=== PATIENT | male | born 1950 | race Caucasian/White ===

== ENCOUNTER 2018-03-26 17:22 | Inpatient (IN) | payer MEDICARE, BC ==
[2018-03-26] MEDS ORDERED: ONDANSETRON HCL INJ/PF 4 MG/2 ML SDV IV ONE (18:27)
[2018-03-26] MEDS ORDERED: MORPHINE SULFATE 10 MG/ML INJ IV ONE ×2 (18:27→23:01)
--- NOTE | 2018-03-26 18:31 | ER Document Report ---
ED Medical Screen (RME) - General Chief Complaint: Abdominal Pain Stated Complaint: ABDOMINAL PAIN Time Seen by Provider: 03/26/18 18:27 Mode of Arrival: Wheelchair Information source: Patient, Relative Notes: pt report symptoms started Monday with n/v, abdominal pain. Increased pain today , +hiccups. denies cp, reports lower abdominal pain, daughter reports pain started in RUQ, has hx cad, back surgery, cardiac stents. LB M today - Related Data Allergies/Adverse Reactions: codeine Allergy (Verified 03/26/18 17:31) Past Medical History - Social History Chew tobacco use (# tins/day): No Frequency of alcohol use: Occasional Drug Abuse: None Renal/ Medical History: Reports: Hx Peritoneal Dialysis Physical Exam - Vital signs Vitals: Temp Pulse Resp BP Pulse Ox 98.9 F 101 H 16 151/99 H 94 03/26/18 17:48 03/26/18 17:48 03/26/18 17:48 03/26/18 17:48 03/26/18 17:48 Course - Vital Signs Vital signs: Temp Pulse Resp BP Pulse Ox 98.9 F 101 H 16 151/99 H 94 03/26/18 17:48 03/26/18 17:48 03/26/18 17:48 03/26/18 17:48 03/26/18 17:48
--- NOTE | 2018-03-26 19:08 | RADIOLOGY REPORT (SQ) ---
EXAM DESCRIPTION: KUB/ABDOMEN (SINGLE VIEW) COMPLETED DATE/TIME: 03/26/2018 6:57 pm REASON FOR STUDY: abd pain, hx bowel obstruction COMPARISON: None. NUMBER OF VIEWS: One view. TECHNIQUE: Supine radiographic image of the abdomen acquired. LIMITATIONS: None. FINDINGS: BOWEL GAS PATTERN: Nonobstructive bowel gas pattern. Moderate stool burden. CALCIFICATIONS: No suspicious calcifications. SOFT TISSUES: No gross mass or suggestion of organomegaly. HARDWARE: Multiple surgical clips in the deep left pelvis. BONES: No acute fracture. Moderate degenerative changes in the lower thoracic and lumbar spine. OTHER: No other significant finding. IMPRESSION: Nonobstructive bowel gas pattern. Moderate stool burden. TECHNICAL DOCUMENTATION: JOB ID: [id number] [id number] 2010 [employer]- All Rights Reserved Reading location - IP/workstation name: [email or web address]
[2018-03-26] MEDS ORDERED: DIPHENHYDRAMINE HCL 50 MG/ML VIAL IV ONE (19:24)
[2018-03-26] MEDS ORDERED: METOCLOPRAMIDE HCL INJ/PF 10 MG/2 ML SDV IV ONE (19:24)
[2018-03-26] MEDS ORDERED: NORMAL SALINE 1000 ML 1,000 ML IV ONE ×2 (19:24→23:38)
[2018-03-26] MEDS ORDERED: PANTOPRAZOLE SODIUM 40 MG VIAL IV ONE (19:25)
--- NOTE | 2018-03-26 19:28 | ER Document Report ---
ED General - General Chief Complaint: Abdominal Pain Stated Complaint: ABDOMINAL PAIN Time Seen by Provider: 03/26/18 18:27 Mode of Arrival: Wheelchair Information source: Patient Notes: This is a 67-year-old man with a history of rheumatoid arthritis, CAD (4 stents) , hypertension, dyslipidemia, IBS. Patient presents to the emergency room with nausea, vomiting, abdominal pain since last night. Patient denies any constipation or diarrhea. Patient denies any blood in the stool. Surgery: Coronary stents Bowel perforation in - HPI Onset: Just prior to arrival Onset/Duration: Sudden Quality of pain: Dull Severity: Moderate Pain Level: 4 Associated symptoms: Nausea, Vomiting. denies: Fever Exacerbated by: Movement Relieved by: Denies Similar symptoms previously: No Recently seen / treated by doctor: No - Related Data Allergies/Adverse Reactions: codeine Allergy (Verified 03/26/18 17:31) Past Medical History - General Information source: Patient, Relative - Social History Smoking Status: Former Smoker Cigarette use (# per day): No Chew tobacco use (# tins/day): No Frequency of alcohol use: Occasional Drug Abuse: None Lives with: Family Family History: None Patient has suicidal ideation: No Patient has homicidal ideation: No - Past Medical History Cardiac Medical History: Reports: Hx Hypercholesterolemia, Hx Hypertension Pulmonary Medical History: Reports: None EENT Medical History: Reports: None Neurological Medical History: Reports: None Endocrine Medical History: Reports: None Malignancy Medical History: Reports None GI Medical History: Reports: Hx Irritable Bowel, Other - Perforated viscus Musculoskeletal Medical History: Reports Hx Arthritis, Reports Other - Rheumatoid arthritis Psychiatric Medical History: Reports: None Traumatic Medical History: Reports: None Infectious Medical History: Reports: None Past Surgical History: Reports: Hx Bowel Surgery Review of Systems - Review of Systems Constitutional: denies: Chills, Fever EENT: No symptoms reported Cardiovascular: No symptoms reported Respiratory: No symptoms reported Gastrointestinal: See HPI, Abdominal pain, Nausea, Vomiting, Poor appetite. denies: Diarrhea, Black stools, Rectal bleeding, Fecal incontinence Genitourinary: No symptoms reported Male Genitourinary: No symptoms reported Musculoskeletal: No symptoms reported Skin: No symptoms reported Hematologic/Lymphatic: No symptoms reported Neurological/Psychological: No symptoms reported Physical Exam - Vital signs Vitals: Temp Pulse Resp BP Pulse Ox 98.9 F 101 H 16 151/99 H 94 03/26/18 17:48 07/23/18 17:48 03/26/18 17:48 03/26/18 17:48 03/26/18 17:48 Notes: Physical exam: GENERAL: Alert and oriented 3, appears uncomfortable HEAD: Atraumatic, normocephalic. EYES: Pupils equal round and reactive to light, extraocular movements intact, sclera anicteric, conjunctiva are normal. ENT: TMs normal, nares patent, oropharynx clear without exudates. Moist mucous membranes. NECK: Normal range of motion, supple without obvious mass or JVD. LUNGS: Breath sounds clear to auscultation bilaterally and equal. No wheezes rales or rhonchi. HEART: Regular rate and rhythm without murmurs, rubs or gallops. ABDOMEN: Soft, hypoactive bowel sounds. Generalized tenderness diffusely. No guarding, no rebound. No masses appreciated. Genitalia: Testes 2 nontender. No inguinal hernias noted. Rectal exam: Scant stool in vault, sent for study, no masses. EXTREMITIES: Normal range of motion, no pitting or edema. No clubbing or cyanosis. NEUROLOGICAL: Cranial nerves II through XII grossly intact. Normal speech, moving all extremities. PSYCH: Normal mood, normal affect. SKIN: Warm, Dry, normal turgor, no rashes or lesions noted. At side ultrasound: No hydronephrosis, no obvious gallstones/pericholecystic fluid/gallbladder wall thickening Course - Re-evaluation Re-evalutation: 03/26/18 23:[address] findings [address] Dr. Howard who is consulted - Vital Signs Vital signs: Temp Pulse Resp BP Pulse Ox 98.9 F 101 H 18 149/91 H 95 03/26/18 17:48 03/26/18 17:48 03/26/18 23:01 03/26/18 21:01 03/26/18 23:01 - Laboratory Result Diagrams: 03/26/18 20:26 03/26/18 20:26 Laboratory results interpreted by me: 03/26/18 03/26/18 03/26/18 19:33 20:26 20:26 WBC 11.8 H RDW 14.7 H Seg Neutrophils % 81.6 H Lymphocytes % 9.8 L Absolute Neutrophils 9.6 H BUN 22 H Glucose 115 H Total Bilirubin 1.7 H Urine Protein 30 H Urine Ketones TRACE H Urine Blood SMALL H - Diagnostic Test Radiology reviewed: Image reviewed, Reports reviewed - CT of the abdomen suggestive of small bowel obstruction Critical Care Note - Critical Care Note Total time excluding time spent on procedures (mins): 50 Discharge - Discharge Clinical Impression: Abdominal pain, SBO Condition: Stable Disposition: ADMITTED INPATIENT Admitting Provider: Surgicalist - Dr. Howard Unit Admitted: Surgical Floor
[2018-03-26 19:53] LABS: APPEARANCE,URINE CLEAR; BILIRUBIN,URINE NEGATIVE (NEGATIVE); COLOR,URINE YELLOW; GLUCOSE, URINE NEGATIVE (NEGATIVE); KETONES,URINE TRACE mg/dL (NEGATIVE); LEUKOCYTE ESTERASE,URINE NEGATIVE (NEGATIVE); NITRITE,URINE NEGATIVE (NEGATIVE); PROTEIN,URINE 30 mg/dL (NEGATIVE); URINE SPECIFIC GRAVITY 1.019; UROBILINOGEN,URINE NEGATIVE mg/dL (<2.0)
[2018-03-26 20:38] LABS: ABSOLUTE LYMPHOCYTES (AUTO) 1.2 10^3/uL (0.5-4.7); ABSOLUTE NEUT (AUTO) 9.6 10^3/uL (1.7-8.2); BASOPHILS % (AUTO) 0.2 % (0-2); EOSINOPHILS % (AUTO) 0.2 % (0-6); HEMATOCRIT 49.7 % (37.9-51.0); HEMOGLOBIN 16.6 g/dL (13.5-17.0); LYMPHOCYTES % (AUTO) 9.8 % (13-45); MEAN CORPUSCULAR HEMOGLOBIN 30.3 pg (27.0-33.4); MEAN CORPUSCULAR HGB CONC 33.4 g/dL (32.0-36.0); MEAN CORPUSCULAR VOLUME 91 fl (80-97); MONOCYTES % (AUTO) 8.2 % (3-13); PLATELET COUNT 238 10^3/uL (150-450); RED BLOOD COUNT 5.48 10^6/uL (4.35-5.55); RED CELL DISTRIBUTION WIDTH 14.7 % (11.5-14.0); SEGMENTED NEUTROPHILS % (AUTO) 81.6 % (42-78); TOTAL CELLS COUNTED % (AUTO) 100 %; WHITE BLOOD COUNT 11.8 10^3/uL (4.0-10.5)
[2018-03-26 20:56] LABS: ALANINE AMINOTRANSFERASE 32 U/L (21-72); ALBUMIN 3.8 g/dL (3.5-5.0); ALKALINE PHOSPHATASE 61 U/L (38-126); ANION GAP 11 (5-19); ASPARTATE AMINO TRANSFERASE 19 U/L (17-59); BILIRUBIN,DIRECT 0.2 mg/dL (0.0-0.4); BILIRUBIN,TOTAL 1.7 mg/dL (0.2-1.3); BLOOD UREA NITROGEN 22 mg/dL (7-20); CALCIUM 9.2 mg/dL (8.4-10.2); CARBON DIOXIDE 27 mmol/L (22-30); CHLORIDE 102 mmol/L (98-107); GLUCOSE 115 mg/dL (75-110); LIPASE 139.9 U/L (23-300); POTASSIUM 4.4 mmol/L (3.6-5.0); SODIUM 140.2 mmol/L (137-145); TOTAL PROTEIN 6.4 g/dL (6.3-8.2)
--- NOTE | 2018-03-26 22:03 | EKG REPORT ---
SEVERITY:- ABNORMAL ECG - SINUS RHYTHM LEFT ANTERIOR FASCICULAR BLOCK NONSPECIFIC REPOL ABNORMALITY, DIFFUSE LEADS BORDERLINE PROLONGED QT INTERVAL : Confirmed by: Alva Gambino MD 26-Mar-2018 22:02:22
--- NOTE | 2018-03-26 22:30 | RADIOLOGY REPORT (SQ) ---
EXAM DESCRIPTION: CT ABD/PELVIS WITH IV ONLY COMPLETED DATE/TIME: 03/26/2018 10:16 pm REASON FOR STUDY: abd pain COMPARISON: None. TECHNIQUE: CT scan of the abdomen and pelvis performed using helical scanning technique with dynamic intravenous contrast injection. No oral contrast. Images reviewed with lung, soft tissue, and bone windows. Reconstructed coronal and sagittal MPR images reviewed. Delayed images for evaluation of the urinary system also acquired. All images stored on PACS. All CT scanners at this facility use dose modulation, iterative reconstruction, and/or weight based d osing when appropriate to reduce radiation dose to as low as reasonably achievable (ALARA). [facility]: Dose Right [facility]: CareDose [facility]: Dose Right [facility]: Teradose 4D [facility]: [employer] CONTRAST TYPE AND DOSE: contrast/concentration: Isovue 370.00 mg/ml; Total Contrast Delivered: 65.0 ml; Total Saline Delivered: 40.0 ml RENAL FUNCTION: BUN 22 creatinine 0.82. RADIATION DOSE: CT Rad equipment meets quality standard of care and radiation dose reduction techniq ues were employed. CTDIvol: 4.9 - 5.7 mGy. DLP: 470 mGy-cm.. LIMITATIONS: None. FINDINGS: LOWER CHEST: No significant findings. No nodules or infiltrates. LIVER: Normal size. No masses. No dilated ducts. SPLEEN: Normal size. No focal lesions. PANCREAS: No masses. No significant calcifications. No adjacent inflammation or peripancreatic fluid collections. Pancreatic duct not dilated. GALLBLADDER: No identified stones by CT criteria. No inflammatory changes to suggest cholecystitis. ADRENAL GLANDS: No significant masses or asymmetry. RIGHT KIDNEY AND URETER: Small cortical cysts. No solid masses. Small nonobstructing calyceal calc skip. No hydronephrosis or hydroureter. LEFT KIDNEY AND URETER: Small cortical cysts. No solid masses. Small nonobstructing calyceal calcu li. No hydronephrosis or hydroureter. AORTA AND VESSELS: No aneurysm. No dissection. Renal arteries, SMA, celiac without stenosis. RETROPERITONEUM: No retroperitoneal adenopathy, hemorrhage or masses. BOWEL AND PERITONEAL CAVITY: Dilation of a majority of the small bowel with bowel wall thickening. T he most distal small bowel loops are nondilated. Small amount of free fluid. APPENDIX: Surgically absent. PELVIS: No mass. No free fluid. Normal bladder. ABDOMINAL WALL: No masses. No hernias. BONES: No significant or acute findings. Degenerative changes in the spine with scoliosis. Pars def ects at L5 with grade 1 anterolisthesis of L5 on S1. OTHER: No other significant finding. IMPRESSION: 1. DISTAL SMALL BOWEL OBSTRUCTION. NO OBVIOUS ETIOLOGY OR FOCAL TRANSITION POINT DEMONSTRATED. SMAL L BOWEL WALL THICKENING. SMALL AMOUNT OF FREE FLUID. 2. SMALL NONOBSTRUCTING CALYCEAL CALCULI IN BOTH KIDNEYS. SMALL CORTICAL CYSTS IN BOTH KIDNEYS. 3. NO OTHER SIGNIFICANT OR ACUTE FINDING IN THE ABDOMEN OR PELVIS ON CT SCAN WITH IV CONTRAST. TECHNICAL DOCUMENTATION: JOB ID: [id number] Quality ID # [id number]: Final reports with documentation of one or more dose reduction techniques (e.g., Au tomated exposure control, adjustment of the mA and/or kV according to patient size, use of iterative reconstruction technique) 2010 [employer]- All Rights Reserved Reading location - IP/workstation name: [email or web address]
--- NOTE | 2018-03-26 23:38 | PDOC H&P ---
History of Present Illness Patient complains of: Abdominal pain History of Present Illness: LISA CHASE is a 67 year old male with prior history of intestinal perforation status post colostomy and subsequent colostomy takedown over 20 years ago now presenting with 2-3 day history of crampy lower abdominal pain especially on the right side. The pain dramatically worsened last night along with nausea and hiccups and dry heaves but no emesis. Patient had a normal bowel movement yesterday but none today. Although he had severe abdominal pain last night, currently he states that he has negligible abdominal pain however he still does not feel well and he has had persistent hiccups. He denies any passage of flatus today. No fevers or chills. Past Medical History Cardiac Medical History: Reports: Myocardial Infarction - History of myocardial infarction in the remote past status post angioplasty Musculoskeltal Medical History: Reports: Arthritis - RA. Patient has a history of immunosuppressive rx, none in past 18 months Past Surgical History Past Surgical History: Reports: Other - Multiple orthopedic surgeries. Bowel resection with colostomy. Social History Smoking Status: Never Smoker Frequency of Alcohol Use: Rare Family History Parental Family History Reviewed: No Children Family History Reviewed: No Sibling(s) Family History Reviewed.: No Medication/Allergy Allergies/Adverse Reactions: codeine Allergy (Verified 03/26/18 17:31) Physical Exam Vital Signs: Temp Pulse Resp BP Pulse Ox 98.9 F 101 H 18 149/91 H 95 03/26/18 17:48 03/26/18 17:48 03/26/18 23:01 03/26/18 21:01 03/26/18 23:01 Intake & Output 03/25/18 03/26/18 03/27/18 06:59 06:59 06:59 Weight 50 kg General appearance: PRESENT: no acute distress, cooperative, other - Patient appears ill but he does not appear toxic. Eye exam: PRESENT: conjunctiva pink Respiratory exam: PRESENT: clear to auscultation stanley Cardiovascular exam: PRESENT: RRR GI/Abdominal exam: PRESENT: other - Abdomen is distended with well-healed midline scar with no palpable hernia defects. Patient has no palpable groin hernias. He has mild tenderness to palpation in the right lower quadrant without peritoneal signs. There is occasional high-pitched bowel sounds. Extremities exam: PRESENT: other - No swelling. No rash. No petechiae. Neurological exam: PRESENT: alert, awake Psychiatric exam: PRESENT: appropriate affect Skin exam: PRESENT: warm Results Laboratory Results: 03/26/18 20:26 03/26/18 20:26 03/26/18 03/26/18 03/26/18 19:33 19:33 19:33 WBC Cancelled RBC Cancelled Hgb Cancelled Hct Cancelled MCV Cancelled MCH Cancelled MCHC Cancelled RDW Cancelled Plt Count Cancelled Seg Neutrophils % Cancelled Lymphocytes % Cancelled Monocytes % Cancelled Eosinophils % Cancelled Basophils % Cancelled Absolute Neutrophils Cancelled Absolute Lymphocytes Cancelled Absolute Monocytes Cancelled Absolute Eosinophils Cancelled Absolute Basophils Cancelled Sodium Cancelled Potassium Cancelled Chloride Cancelled Carbon Dioxide Cancelled Anion Gap Cancelled BUN Cancelled Creatinine Cancelled Est GFR ( Amer) Cancelled Est GFR (Non-Af Amer) Cancelled Glucose Cancelled Calcium Cancelled Total Bilirubin Cancelled AST Cancelled ALT Cancelled Alkaline Phosphatase Cancelled Total Protein Cancelled Albumin Cancelled Lipase Cancelled Urine Color YELLOW Urine Appearance CLEAR Urine pH 5.0 Ur Specific [place] 1.019 Urine Protein 30 H Urine Glucose (UA) NEGATIVE Urine Ketones TRACE H Urine Blood SMALL H Urine Nitrite NEGATIVE Ur Leukocyte Esterase NEGATIVE Urine WBC (Auto) 3 Urine RBC (Auto) 8 Stool Occult Blood 03/26/18 03/26/18 03/26/18 19:33 20:26 20:26 WBC 11.8 H RBC 5.48 Hgb 16.6 Hct 49.7 MCV 91 MCH 30.3 MCHC 33.4 RDW 14.7 H Plt Count 238 Seg Neutrophils % 81.6 H Lymphocytes % 9.8 L Monocytes % 8.2 Eosinophils % 0.2 Basophils % 0.2 Absolute Neutrophils 9.6 H Absolute Lymphocytes 1.2 Absolute Monocytes 1.0 Absolute Eosinophils 0.0 Absolute Basophils 0.0 Sodium 140.2 Potassium 4.4 Chloride 102 Carbon Dioxide 27 Anion Gap 11 BUN 22 H Creatinine 0.82 Est GFR ( Amer) > 60 Est GFR (Non-Af Amer) > 60 Glucose 115 H Calcium 9.2 Total Bilirubin 1.7 H AST 19 ALT 32 Alkaline Phosphatase 61 Total Protein 6.4 Albumin 3.8 Lipase 139.9 Urine Color Urine Appearance Urine pH Ur Specific [place] Urine Protein Urine Glucose (UA) Urine Ketones Urine Blood Urine Nitrite Ur Leukocyte Esterase Urine WBC (Auto) Urine RBC (Auto) Stool Occult Blood NEGATIVE Impressions: KUB X-Ray 03/26/18 18:35 IMPRESSION: Nonobstructive bowel gas pattern. Moderate stool burden. Abdomen/Pelvis CT 03/26/18 21:15 IMPRESSION: 1. DISTAL SMALL BOWEL OBSTRUCTION. NO OBVIOUS ETIOLOGY OR FOCAL TRANSITION POINT DEMONSTRATED. SMALL BOWEL WALL THICKENING. SMALL AMOUNT OF FREE FLUID. 2. SMALL NONOBSTRUCTING CALYCEAL CALCULI IN BOTH KIDNEYS. SMALL CORTICAL CYSTS IN BOTH KIDNEYS. 3. NO OTHER SIGNIFICANT OR ACUTE FINDING IN THE ABDOMEN OR PELVIS ON CT SCAN WITH IV CONTRAST. Assessment & Plan - Diagnosis (1) Small bowel obstruction Is this a current diagnosis for this admission?: Yes Plan: Possible small bowel obstruction. Although he demonstrates evidence of small bowel thickening with free peritoneal fluid, he has minimal abdominal pain at this time with minimal tenderness and no tachycardia. I do not see a distinct transition point on the CT scan. I do not see evidence of closed loop obstruction on CT scan. I think if he has compromised bowel he would demonstrate more tenderness and he would have persistent pain. Therefore I will attempt conservative management initially with NG decompression and IV fluids. Will repeat his x-rays in the morning. We will consider possible small bowel follow study.
[2018-03-26] MEDS ORDERED: PHARMACY COMMUNICATION ORDER MC NR (23:45)
[2018-03-27 04:22] LABS: HEMOGLOBIN 15.5 g/dL (13.5-17.0); MEAN CORPUSCULAR HEMOGLOBIN 30.7 pg (27.0-33.4); MEAN CORPUSCULAR HGB CONC 33.8 g/dL (32.0-36.0); MEAN CORPUSCULAR VOLUME 91 fl (80-97); PLATELET COUNT 222 10^3/uL (150-450); RED BLOOD COUNT 5.05 10^6/uL (4.35-5.55); RED CELL DISTRIBUTION WIDTH 14.9 % (11.5-14.0); WHITE BLOOD COUNT 10.2 10^3/uL (4.0-10.5)
[2018-03-27 04:47] LABS: ANION GAP 9 (5-19); BLOOD UREA NITROGEN 21 mg/dL (7-20); CALCIUM 8.5 mg/dL (8.4-10.2); CARBON DIOXIDE 24 mmol/L (22-30); CHLORIDE 107 mmol/L (98-107); GLUCOSE 104 mg/dL (75-110); POTASSIUM 4.2 mmol/L (3.6-5.0); SODIUM 139.5 mmol/L (137-145)
--- NOTE | 2018-03-27 07:59 | EKG REPORT ---
SEVERITY:- ABNORMAL ECG - SINUS RHYTHM LEFT ANTERIOR FASCICULAR BLOCK BORDERLINE PROLONGED QT INTERVAL : Confirmed by: Alva Gambino MD 27-Mar-2018 07:58:53
--- NOTE | 2018-03-27 08:52 | RADIOLOGY REPORT (SQ) ---
EXAM DESCRIPTION: ABDOMEN 2 VIEWS COMPLETED DATE/TIME: 03/27/2018 7:29 am REASON FOR STUDY: Follow-up possible small bowel obstruction COMPARISON: 03/26/2018 NUMBER OF VIEWS: Two views. TECHNIQUE: Supine and erect/decubitus radiographic images of the abdomen acquired. LIMITATIONS: None. FINDINGS: FREE AIR: None. LUNG BASES: Clear. BOWEL GAS PATTERN: Abundant fecal material throughout the colon. Small bowel loops upper limits of n ormal in caliber in the left upper quadrant. Nasogastric tube in the stomach. CALCIFICATIONS: No suspicious calcifications. SOFT TISSUES: No gross mass or suggestion of organomegaly. HARDWARE: None in the abdomen. BONES: No acute fracture. No worrisome bone lesions. OTHER: No other significant finding. IMPRESSION: Fecal retention. Ileus. TECHNICAL DOCUMENTATION: JOB ID: [id number] [employer]- All Rights Reserved Reading location - IP/workstation name: [email or web address]
[2018-03-27] MEDS: ENOXAPARIN SODIUM INJ 40 MG/0.4 ML DISP.SYRIN SUBCUT SCH (10:10)
--- NOTE | 2018-03-27 11:27 | PDOC PROGRESS REPORT ---
Subjective Progress Note for:: 03/27/18 Subjective:: Feels better. Passing flatus. Reason For Visit: SMALL BOWEL OBSTRUCTION Physical Exam Vital Signs: Temp Pulse Resp BP Pulse Ox 98.9 F 101 H 15 125/86 H 96 03/26/18 17:48 03/26/18 17:48 03/27/18 04:30 03/27/18 04:30 03/27/18 04:30 Intake & Output 03/26/18 03/27/18 03/28/18 06:59 06:59 06:59 Output Total 30 Balance -30 General appearance: PRESENT: no acute distress, cooperative Respiratory exam: PRESENT: clear to auscultation stanley Cardiovascular exam: PRESENT: RRR GI/Abdominal exam: PRESENT: other - Soft, mildly distended, minimal tenderness. No peritoneal signs. Extremities exam: PRESENT: other - No swelling. Results Laboratory Results: 03/27/18 04:10 03/27/18 04:10 03/27/18 03/27/18 04:10 04:10 WBC 10.2 RBC 5.05 Hgb 15.5 Hct 46.0 MCV 91 MCH 30.7 MCHC 33.8 RDW 14.9 H Plt Count 222 Sodium 139.5 Potassium 4.2 Chloride 107 Carbon Dioxide 24 Anion Gap 9 BUN 21 H Creatinine 0.72 Est GFR ( Amer) > 60 Est GFR (Non-Af Amer) > 60 Glucose 104 Calcium 8.5 Impressions: KUB X-Ray 03/26/18 18:35 IMPRESSION: Nonobstructive bowel gas pattern. Moderate stool burden. Abdomen/Pelvis CT 03/26/18 21:15 IMPRESSION: 1. DISTAL SMALL BOWEL OBSTRUCTION. NO OBVIOUS ETIOLOGY OR FOCAL TRANSITION POINT DEMONSTRATED. SMALL BOWEL WALL THICKENING. SMALL AMOUNT OF FREE FLUID. 2. SMALL NONOBSTRUCTING CALYCEAL CALCULI IN BOTH KIDNEYS. SMALL CORTICAL CYSTS IN BOTH KIDNEYS. 3. NO OTHER SIGNIFICANT OR ACUTE FINDING IN THE ABDOMEN OR PELVIS ON CT SCAN WITH IV CONTRAST. Abdomen X-Ray 03/27/18 06:40 IMPRESSION: Fecal retention. Ileus. Assessment & Plan - Diagnosis (1) Small bowel obstruction Is this a current diagnosis for this admission?: Yes Plan: Appears improved. Minimal NG output. Passing gas. Air in the colon on x-ray all are good signs. Patient still not back to baseline however. Small bowel still appears dilated on x-rays. Therefore we will keep the NG tube and IV fluids and n.p.o. status. Will try fleets enema-- Stool seen in the right colon. Encourage ambulation.
[2018-03-27] MEDS ORDERED: NA PHOS,M-B/NA PHOS,DI-BA (ADULT) 133 ML ENEMA PR ONE (11:28)
[2018-03-27] MEDS ORDERED: METOPROLOL TARTRATE PF/INJ 5 MG/5 ML SDV IV SCH (13:30)
[2018-03-27] MEDS ORDERED: ONDANSETRON HCL INJ/PF 4 MG/2 ML SDV IV PRN (16:11)
[2018-03-27] MEDS: NORMAL SALINE 1000 ML 1,000 ML IV PRN (16:49)
--- NOTE | 2018-03-27 18:03 | PDOC CONSULTATION ---
Consultation Consult Date: 03/27/18 Attending physician:: CARLOS BRITO Consult reason:: CAD, history of atrial fibrillation History of Present Illness Admission Date/PCP: 03/26/18 23:47 Patient complains of: Abdominal pain History of Present Illness: LISA CHASE is a 67 year old male with prior history of intestinal perforation status post colostomy and subsequent colostomy takedown over 20 years ago now presenting with 2-3 day history of crampy lower abdominal pain especially on the right side. The pain dramatically worsened last night along with nausea and hiccups and dry heaves but no emesis. Patient had a normal bowel movement yesterday but none today. Although he had severe abdominal pain last night, currently he states that he has negligible abdominal pain however he still does not feel well and he has had persistent hiccups. He denies any passage of flatus today. No fevers or chills. Patient has history of coronary artery disease and history of coronary stent placement 4 in 2009. Since then he has done well. 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 I was asked to follow patient from cardiac standpoint because of his significant CAD and possible need for surgery. When I saw the patient he denied any chest pain. He was noted to be in sinus rhythm but somewhat tachycardic. Orders were placed for IV Lopressor 2.5 mg every 6 since patient was on NG suction and being treated for bowel obstruction. Past Medical History Cardiac Medical History: Reports: Myocardial Infarction - History of myocardial infarction in the remote past status post angioplasty, Hyperlipidema, Hypertension Pulmonary Medical History: Reports: None EENT Medical History: Reports: None Neurological Medical History: Reports: None Endocrine Medical History: Reports: None Malignancy Medical History: Reports: None GI Medical History: Reports: Other - Perforated viscus Musculoskeltal Medical History: Reports: Arthritis - RA. Patient has a history of immunosuppressive rx, none in past 18 months, Other - Rheumatoid arthritis Psychiatric Medical History: Reports: None Traumatic Medical History: Reports: None Infectious Medical History: Reports: None Past Surgical History Past Surgical History: Reports: Coronary Stent, Other - Multiple orthopedic surgeries. Bowel resection with colostomy. Social History Information Source: Patient Lives with: Family Smoking Status: Never Smoker Frequency of Alcohol Use: Occasional Hx Recreational Drug Use: No Hx Prescription Drug Abuse: No - Advance Directive Resuscitation Status: Full Code Surrogate healthcare decision maker:: Patient's is the surrogate decision-maker Family History Family History: CAD, Hypertension Parental Family History Reviewed: Yes Children Family History Reviewed: Yes Sibling(s) Family History Reviewed.: Yes Medication/Allergy Home Medications: Aspirin [Aspirin EC] 81 mg PO DAILY 03/27/18 Atorvastatin Calcium [Lipitor 80 mg Tablet] 80 mg PO QHS 03/27/18 Cholecalciferol (Vitamin D3) [Vitamin D3 1000 Unit Tablet] 1,000 unit PO DAILY 03/27/18 Folic Acid 1 mg PO DAILY 03/27/18 Metoprolol Tartrate [Lopressor 25 mg Tablet] 25 mg PO Q12 03/27/18 Tamsulosin HCl [Flomax 0.4 mg Cap.sr] 0.4 mg PO DAILY 03/27/18 Tramadol HCl [Ultram 50 mg Tablet] 50 mg PO Q6HP PRN 03/27/18 Allergies/Adverse Reactions: codeine Allergy (Verified 03/26/18 17:31) Review of Systems Review of Systems: Please see history of present illness and past medical history as wall. Constitutional: No fever or chills reported. Head : No recent chronic headaches, recent head injury. Eyes: No recent eye pain, diplopia, redness, discharge, acute visual changes. Ears: No recent chronic ear pain, acute hearing loss, ear discharge. Oral cavity: No recent ulcerations, bleeding, oral cavity discomfort. Neck: No recent acute neck pain reported. Hematologic: No recent easy bruising or bleeding. Lymphatic: No recent lymph node enlargement reported. Cardiovascular system review: See history of present illness. Respiratory system review: No hemoptysis or blood clots in the lungs reported. Mild Shortness of breath on exertion Gastrointestinal system review: Presents with acute lower abdominal pain. Some nausea and vomiting noted. Genitourinary system review: No recent acute or chronic hematuria, flank pain, UTI etc. reported. Skin system review: Negative for any recent abnormal bruising, no rash, no pruritus reported. Neurologic: No prior history of strokes, mini strokes, seizure disorder. Psychologic: No history of major psychosis or major depression reported. Musculoskeletal: Minor aches and pains reported. No acute joint swelling reported. Endocrine: No recent polyuria, polydipsia, recent heat or cold intolerance. Physical Exam Vital Signs: Temp Pulse Resp BP Pulse Ox 98.7 F 98 24 H 129/90 H 94 03/27/18 15:54 03/27/18 15:54 03/27/18 15:54 03/27/18 15:54 03/27/18 15:54 Intake & Output 03/26/18 03/27/18 03/28/18 06:59 06:59 06:59 Intake Total 1000 Output Total 30 Balance -30 1000 Results Laboratory Results: 03/27/18 04:10 03/27/18 04:10 03/27/18 03/27/18 04:10 04:10 WBC 10.2 RBC 5.05 Hgb 15.5 Hct 46.0 MCV 91 MCH 30.7 MCHC 33.8 RDW 14.9 H Plt Count 222 Sodium 139.5 Potassium 4.2 Chloride 107 Carbon Dioxide 24 Anion Gap 9 BUN 21 H Creatinine 0.72 Est GFR ( Amer) > 60 Est GFR (Non-Af Amer) > 60 Glucose 104 Calcium 8.5 EKG Comments: EKG shows sinus rhythm with minor nonspecific ST-T wave changes. Impressions: KUB X-Ray 03/26/18 18:35 IMPRESSION: Nonobstructive bowel gas pattern. Moderate stool burden. Abdomen/Pelvis CT 03/26/18 21:15 IMPRESSION: 1. DISTAL SMALL BOWEL OBSTRUCTION. NO OBVIOUS ETIOLOGY OR FOCAL TRANSITION POINT DEMONSTRATED. SMALL BOWEL WALL THICKENING. SMALL AMOUNT OF FREE FLUID. 2. SMALL NONOBSTRUCTING CALYCEAL CALCULI IN BOTH KIDNEYS. SMALL CORTICAL CYSTS IN BOTH KIDNEYS. 3. NO OTHER SIGNIFICANT OR ACUTE FINDING IN THE ABDOMEN OR PELVIS ON CT SCAN WITH IV CONTRAST. Abdomen X-Ray 03/27/18 06:40 IMPRESSION: Fecal retention. Ileus. Assessment & Plan - Diagnosis (1) Bowel obstruction Qualifiers: Intestinal obstruction type: unspecified Intestinal obstruction extent: unspecified extent Qualified Code(s): K56.609 - Unspecified intestinal obstruction, unspecified as to partial versus complete obstruction Is this a current diagnosis for this admission?: Yes (2) Coronary artery disease Qualifiers: Coronary Disease-Associated Artery/Lesion type: [place] artery [place] vs. transplanted heart: [place] heart Associated angina: angina presence unspecified Qualified Code(s): I25.10 - Atherosclerotic heart disease of [place] coronary artery without angina pectoris Is this a current diagnosis for this admission?: Yes (3) Hypertension Qualifiers: Hypertension type: essential hypertension Qualified Code(s): I10 - Essential (primary) hypertension Is this a current diagnosis for this admission?: Yes (4) Hyperlipidemia Qualifiers: Hyperlipidemia type: unspecified Qualified Code(s): E78.5 - Hyperlipidemia , unspecified Is this a current diagnosis for this admission?: Yes (5) Paroxysmal atrial fibrillation Is this a current diagnosis for this admission?: Yes - Notes Notes: Bowel obstruction: Patient being managed by surgical list. We will leave management to him. Coronary artery disease: Currently is stable. Have started patient on IV Lopressor. Hypertension: Blood pressure under reasonable control. Hyperlipidemia: Recommend starting statin therapy once able to take p.o. History of paroxysmal atrial fibrillation: Currently not on chronic anticoagulation. Have ordered a 2D echo. At this point patient is maintaining sinus rhythm. Patient has a history of it. Chronic anticoagulation issue is probably best to left to patient's primary care white sugar syrup operator. Patient currently just visiting here on vacation. - Time Time Spent: 30 to 50 Minutes - CODE STATUS was discussed, patient remains full code. Surrogate decision-maker unchanged. Multiple medical problems were addressed. More than 50% of the time spent coordinating care, discussing management plans with involved caregivers. Management plans discussed with involved personnels. Medical decision making was of moderate to high complexity , patient's has multiple comorbidities. Medications reviewed and adjusted accordingly: Yes
[2018-03-27] MEDS: METOPROLOL TARTRATE PF/INJ 5 MG/5 ML SDV IV SCH ×2 (18:57→23:30)
[2018-03-27] MEDS ORDERED: METOPROLOL SUCCINATE 25 MG TAB.SR.24H PO SCH (22:00)
[2018-03-27] MEDS ORDERED: METOPROLOL TARTRATE 25 MG TABLET NG SCH (22:00)
--- NOTE | 2018-03-27 22:32 | PDOC CONSULTATION ---
Consultation Consult Date: 03/27/18 Attending physician:: SURGICAL SURGICALIST Consult reason:: medical management History of Present Illness Admission Date/PCP: 03/26/18 23:47 Patient complains of: Abdominal pain at admission History of Present Illness: LISA CHASE is a 67 year old male with history of intestinal perforation status post colostomy and subsequent colostomy taken down over 20 years, under the surgical list care. Patient was admitted on 03/26 complaining of lower and right abdominal pain, KUB x-ray show nonobstructive bowel gas pattern, CT abdomen/pelvis came back positive for distal small bowel obstruction, patient admitted placed n.p.o. with an NG tube. Conservative management is started. Today he has not NG tube and she has started with your diet, does not complain of any abdominal pain, feels weak and tired. Denies fever, chills, nausea, vomiting, chest pain, shortness of breath, diarrhea or changes in his urine. Neurology has been consulted and is in the case for history of CAD and atrial fibrillation. Hospitalist consulted for medical management. Past Medical History Cardiac Medical History: Reports: Myocardial Infarction - History of myocardial infarction in the remote past status post angioplasty, Hyperlipidema, Hypertension Pulmonary Medical History: Reports: None EENT Medical History: Reports: None Neurological Medical History: Reports: None Endocrine Medical History: Reports: None Malignancy Medical History: Reports: None GI Medical History: Reports: Other - Perforated viscus Musculoskeltal Medical History: Reports: Arthritis - RA. Patient has a history of immunosuppressive rx, none in past 18 months, Other - Rheumatoid arthritis Psychiatric Medical History: Reports: None Traumatic Medical History: Reports: None Infectious Medical History: Reports: None Past Surgical History Past Surgical History: Intestinal perforation Past Surgical History: Reports: Coronary Stent, Other - Multiple orthopedic surgeries. Bowel resection with colostomy for intestin Social History Lives with: Family Smoking Status: Never Smoker Frequency of Alcohol Use: Occasional Hx Recreational Drug Use: No Hx Prescription Drug Abuse: No - Advance Directive Resuscitation Status: Full Code Family History Family History: CAD, Hypertension Parental Family History Reviewed: No Children Family History Reviewed: NA Sibling(s) Family History Reviewed.: NA Medication/Allergy Home Medications: Aspirin [Aspirin EC] 81 mg PO DAILY 03/27/18 Atorvastatin Calcium [Lipitor 80 mg Tablet] 80 mg PO QHS 03/27/18 Cholecalciferol (Vitamin D3) [Vitamin D3 1000 Unit Tablet] 1,000 unit PO DAILY 03/27/18 Folic Acid 1 mg PO DAILY 03/27/18 Metoprolol Tartrate [Lopressor 25 mg Tablet] 25 mg PO Q12 03/27/18 Tamsulosin HCl [Flomax 0.4 mg Cap.sr] 0.4 mg PO DAILY 03/27/18 Tramadol HCl [Ultram 50 mg Tablet] 50 mg PO Q6HP PRN 03/27/18 Allergies/Adverse Reactions: codeine Allergy (Verified 03/26/18 17:31) Review of Systems Review of Systems: As outlined in HPI, all others negative Physical Exam Vital Signs: Temp Pulse Resp BP Pulse Ox 98.9 F 92 16 122/83 98 03/27/18 20:33 03/27/18 20:33 03/27/18 20:33 03/27/18 20:33 03/27/18 20:33 Intake & Output 03/26/18 03/27/18 03/28/18 06:59 06:59 06:59 Intake Total 1000 Output Total 30 Balance -30 1000 Additional comments: General appearance: Looks weak. Well-developed, alert and cooperative, and appears to be in no acute distress, sleeping. Head: Normocephalic Eyes: PEERL, EOMI, vision is grossly intact. Ears: External auditory canal and tympanic membranes clear, hearing grossly intact. Nose: No nasal discharge. Throat: Oral cavity and pharynx normal. No inflammation, swelling, exudate or lesions. Neck: Neck supple, nontender without lymphadenopathy, masses or thyromegaly. Cardiac: Normal S1 and S2. No S3, S4 or murmurs. Rhythm is regular. There is no peripheral edema, cyanosis or pallor. Extremities are warm and well perfused. Capillary refill is less than 2 seconds. No carotid bruits. Lungs: Clear to auscultation and percussion without rales, rhonchi, wheezing or diminished breath sounds. Not using accessory muscles. Abdomen: Positive bowel sounds. Soft. Nondistended, nontender. No guarding or rebound. No masses. No hepatosplenomegaly Extremities: No significant deformity or joint abnormality. No edema. Peripheral pulses intact. No varicosities. Neurological: Cranial nerves II through XII grossly intact. Skin: Skin pale color, normal texture and turgor with no lesions or eruptions, warm and dry. Psychiatric: The mental examination revealed the patient was oriented to person , place, and time. The patient was able to demonstrate good judgment on recent , without hallucinations, abnormal affect or abnormal behaviors. Results Laboratory Results: 03/27/18 04:10 03/27/18 04:10 03/27/18 03/27/18 04:10 04:10 WBC 10.2 RBC 5.05 Hgb 15.5 Hct 46.0 MCV 91 MCH 30.7 MCHC 33.8 RDW 14.9 H Plt Count 222 Sodium 139.5 Potassium 4.2 Chloride 107 Carbon Dioxide 24 Anion Gap 9 BUN 21 H Creatinine 0.72 Est GFR ( Amer) > 60 Est GFR (Non-Af Amer) > 60 Glucose 104 Calcium 8.5 Impressions: KUB X-Ray 03/26/18 18:35 IMPRESSION: Nonobstructive bowel gas pattern. Moderate stool burden. Abdomen/Pelvis CT 03/26/18 21:15 IMPRESSION: 1. DISTAL SMALL BOWEL OBSTRUCTION. NO OBVIOUS ETIOLOGY OR FOCAL TRANSITION POINT DEMONSTRATED. SMALL BOWEL WALL THICKENING. SMALL AMOUNT OF FREE FLUID. 2. SMALL NONOBSTRUCTING CALYCEAL CALCULI IN BOTH KIDNEYS. SMALL CORTICAL CYSTS IN BOTH KIDNEYS. 3. NO OTHER SIGNIFICANT OR ACUTE FINDING IN THE ABDOMEN OR PELVIS ON CT SCAN WITH IV CONTRAST. Abdomen X-Ray 03/27/18 06:40 IMPRESSION: Fecal retention. Ileus. Assessment & Plan - Diagnosis (1) Coronary artery disease Qualifiers: Coronary Disease-Associated Artery/Lesion type: [place] artery [place] vs. transplanted heart: [place] heart Associated angina: angina presence unspecified Qualified Code(s): I25.10 - Atherosclerotic heart disease of [place] coronary artery without angina pectoris Is this a current diagnosis for this admission?: Yes Plan: Patient does not complain of any cardiac symptomatology, cardiology is off the patient on following in consultation. Continue with home medications. (2) Hypertension Qualifiers: Hypertension type: essential hypertension Qualified Code(s): I10 - Essential (primary) hypertension Is this a current diagnosis for this admission?: Yes Plan: Blood pressure is well controlled, continue with home antihypertensives when tolerated p.o. intake. No active intervention. Cardiology place him on IV Lopressor while he was n.p.o. (3) Paroxysmal atrial fibrillation Is this a current diagnosis for this admission?: Yes Plan: Patient sinus rhythm, not on anticoagulation. Cardiology ordered an echocardiogram. (4) Hyperlipidemia Qualifiers: Hyperlipidemia type: unspecified Qualified Code(s): E78.5 - Hyperlipidemia , unspecified Is this a current diagnosis for this admission?: Yes Plan: Cardiology recommended to start the statins. (5) Small bowel obstruction Is this a current diagnosis for this admission?: Yes Plan: Patient is under the surgical care, patient seems to be improving. As per their recommendations. - Time Time Spent: 30 to 50 Minutes - Plan Summary Plan Summary: Thank you for allowing us to participate in this patient care, please call us with any question.
[2018-03-27] MEDS ORDERED: MORPHINE SULFATE 10 MG/ML INJ IV PRN (23:02)
[2018-03-28] MEDS: NORMAL SALINE 1000 ML 1,000 ML IV PRN ×2 (02:07→10:18)
--- NOTE | 2018-03-28 02:45 | PDOC PROGRESS REPORT ---
Subjective Progress Note for:: 03/28/18 Subjective:: Patient had lower abdominal pain earlier tonight that has since resolved. Appears to have been another episode of crampy abdominal pain. Patient had little response with the enema. Currently he denies any abdominal pain. He is a little bit restless however. Reason For Visit: SMALL BOWEL OBSTRUCTION Physical Exam Vital Signs: Temp Pulse Resp BP Pulse Ox 98.8 F 74 16 94/56 L 99 03/28/18 00:20 03/28/18 00:20 03/28/18 00:20 03/28/18 00:20 03/28/18 00:20 Intake & Output 03/26/18 03/27/18 03/28/18 06:59 06:59 06:59 Intake Total 2014 Output Total -2014 General appearance: PRESENT: no acute distress, cooperative Respiratory exam: PRESENT: clear to auscultation [place] Cardiovascular exam: PRESENT: RRR GI/Abdominal exam: PRESENT: other - Soft, mildly distended, very mild lower abdominal tenderness without peritoneal signs. Results Laboratory Results: 03/27/18 04:10 03/27/18 04:10 03/27/18 03/27/18 04:10 04:10 WBC 10.2 RBC 5.05 Hgb 15.5 Hct 46.0 MCV 91 MCH 30.7 MCHC 33.8 RDW 14.9 H Plt Count 222 Sodium 139.5 Potassium 4.2 Chloride 107 Carbon Dioxide 24 Anion Gap 9 BUN 21 H Creatinine 0.72 Est GFR ( Amer) > 60 Est GFR (Non-Af Amer) > 60 Glucose 104 Calcium 8.5 Impressions: KUB X-Ray 03/26/18 18:35 IMPRESSION: Nonobstructive bowel gas pattern. Moderate stool burden. Abdomen/Pelvis CT 03/26/18 21:15 IMPRESSION: 1. DISTAL SMALL BOWEL OBSTRUCTION. NO OBVIOUS ETIOLOGY OR FOCAL TRANSITION POINT DEMONSTRATED. SMALL BOWEL WALL THICKENING. SMALL AMOUNT OF FREE FLUID. 2. SMALL NONOBSTRUCTING CALYCEAL CALCULI IN BOTH KIDNEYS. SMALL CORTICAL CYSTS IN BOTH KIDNEYS. 3. NO OTHER SIGNIFICANT OR ACUTE FINDING IN THE ABDOMEN OR PELVIS ON CT SCAN WITH IV CONTRAST. Abdomen X-Ray 03/27/18 06:40 IMPRESSION: Fecal retention. Ileus. Assessment & Plan - Diagnosis (1) Small bowel obstruction Is this a current diagnosis for this admission?: Yes Plan: Recurrent pain tonight is a little bit concerning but exam demonstrates minimal tenderness and he is pain-free at this time. His NG tube output was minimal and it accidentally came out and I will leave it out for now. Will reevaluate later today with labs and x-rays. He does appear improved from his admission.
[2018-03-28 06:41] LABS: HEMATOCRIT 41.4 % (37.9-51.0); HEMOGLOBIN 13.9 g/dL (13.5-17.0); MEAN CORPUSCULAR HEMOGLOBIN 30.4 pg (27.0-33.4); MEAN CORPUSCULAR HGB CONC 33.6 g/dL (32.0-36.0); MEAN CORPUSCULAR VOLUME 91 fl (80-97); PLATELET COUNT 216 10^3/uL (150-450); RED BLOOD COUNT 4.58 10^6/uL (4.35-5.55); RED CELL DISTRIBUTION WIDTH 14.5 % (11.5-14.0); WHITE BLOOD COUNT 8.8 10^3/uL (4.0-10.5)
[2018-03-28] MEDS: METOPROLOL TARTRATE PF/INJ 5 MG/5 ML SDV IV SCH (06:55)
[2018-03-28 07:02] LABS: ANION GAP 9 (5-19); BLOOD UREA NITROGEN 19 mg/dL (7-20); CALCIUM 8.4 mg/dL (8.4-10.2); CARBON DIOXIDE 26 mmol/L (22-30); CHLORIDE 104 mmol/L (98-107); GLUCOSE 76 mg/dL (75-110); POTASSIUM 4.9 mmol/L (3.6-5.0); SODIUM 139.1 mmol/L (137-145)
[2018-03-28] MEDS: ENOXAPARIN SODIUM INJ 40 MG/0.4 ML DISP.SYRIN SUBCUT SCH (10:18)
--- NOTE | 2018-03-28 11:27 | RADIOLOGY REPORT (SQ) ---
EXAM DESCRIPTION: ABDOMEN 2 VIEWS COMPLETED DATE/TIME: 03/28/2018 10:39 am REASON FOR STUDY: f/u sbo COMPARISON: 03/27/2018 NUMBER OF VIEWS: Two views. TECHNIQUE: Supine and erect/decubitus radiographic images of the abdomen acquired. LIMITATIONS: None. FINDINGS: FREE AIR: None. No abnormal gas collections. LUNG BASES: Clear. BOWEL GAS PATTERN: Nonobstructive pattern. No dilated loops or air fluid levels. CALCIFICATIONS: No suspicious calcifications. SOFT TISSUES: No gross mass or suggestion of organomegaly. HARDWARE: Surgical clips project over the left lower quadrant. BONES: No acute fracture. No worrisome bone lesions. OTHER: No other significant finding. IMPRESSION: Nonspecific, nonobstructed bowel gas pattern. No acute findings. TECHNICAL DOCUMENTATION: JOB ID: [id number] [employer]- All Rights Reserved Reading location - IP/workstation name: [email or web address]
[2018-03-28] MEDS ORDERED: POLYETHYLENE GLYCOL 3350 POWDER 17 GM/1 PACKET PO ONE ×2 (12:30→14:45)
[2018-03-28] MEDS: TAMSULOSIN HCL 0.4 MG CAP.SR.24H PO SCH ×2 (12:58→13:08)
[2018-03-28] MEDS: METOPROLOL SUCCINATE 25 MG TAB.SR.24H PO SCH ×2 (12:59→23:29)
[2018-03-28] MEDS ORDERED: LIDOCAINE 5% (700 MG) TRANSDERMAL ADH..PATCH TP ONE (15:30)
[2018-03-28] MEDS: TRAMADOL HCL 50 MG TABLET PO PRN (16:00)
--- NOTE | 2018-03-28 19:16 | XCELERA REPORT ---
[address] [address] Transthoracic Echocardiogram Report Name: LISA CHASE Age: 67 yrs Gender: Male : 1950 Patient Status: Inpatient Patient Location: [address] [place], [place] [address]A Study Date: 03/28/2018 08:37 AM Height: 62 in Weight: 110 lb BSA: 1.5 m2 Procedure: A complete two-dimensional transthoracic echocardiogram was performed (2D, M-mode, spectral and color flow Doppler). The study was technically adequate with some images being suboptimal in quality. Reason For Study: CAD, paroxysmal A. fib Ordering Physician: DORIE KENNEDY Performed By: Ruth Hahn Interpretation Summary The left ventricular ejection fraction is normal. There is mild concentric left ventricular hypertrophy. The left ventricle is grossly normal size. Doppler measurements suggest pseudonormalized left ventricular relaxation, which is associated with grade II/IV or mild to moderate diastolic dysfunction Wall motion cannot be accurately commented on, but no definite regional wall motion abnormalities noted. The right ventricle is grossly normal size. The right ventricular systolic function is normal. The right atrium is normal. Borderline left atrial enlargement. There is a mild to moderate amount of mitral regurgitation There is no mitral valve stenosis. There is a mild amount of aortic regurgitation There is no aortic valve stenosis There is a trace or physiologic amount of tricuspid regurgitation Tricuspid regurgitation jet envelope not well defined to measure RV systolic pressure accurately. The aortic root is not well visualized but is probably normal size. The inferior vena cava was not visualized There is no pericardial effusion. MMode/2D Measurements & Calculations RVDd: 2.7 cm LVIDd: 4.8 cm FS: 37.1 % Ao root diam: 3.0 cm IVSd: 1.1 cm LVIDs: 3.0 cm EDV(Teich): 109.5 ml LVPWd: 0.94 cmESV(Teich): 36.2 ml Ao root area: 7.0 cm2 EF(Teich): 67.0 % LA dimension: 3.6 cm LVOT diam: 1.9 cm LVOT area: 2.9 cm2 Doppler Measurements & Calculations MV E max demetria: MV dec time: AI max demetria: PA V2 max: 60.6 cm/sec 0.22 sec 232.5 cm/sec 62.8 cm/sec MV A max demetria: AI max P.4 mmHg PA max P.2 cm/sec AI dec slope: 1.6 mmHg MV E/A: 0.92 45.2 cm/sec2 AI P1/2t: 1507 msec TR max demetria: 149.3 cm/sec TR max P.9 mmHg Left Ventricle The left ventricle is grossly normal size. There is mild concentric left ventricular hypertrophy. The left ventricular ejection fraction is normal. Doppler measurements suggest pseudonormalized left ventricular relaxation, which is associated with grade II/IV or mild to moderate diastolic dysfunction. Wall motion cannot be accurately commented on, but no definite regional wall motion abnormalities noted. Right Ventricle The right ventricle is grossly normal size. There is normal right ventricular wall thickness. The right ventricular systolic function is normal. Atria The right atrium is normal. Borderline left atrial enlargement. Interarterial septum not well visualized and not well dopplered. Cannot comment on ASD/PFO presence. Mitral Valve The mitral valve is grossly normal. There is no mitral valve stenosis. There is a mild to moderate amount of mitral regurgitation. Aortic Valve The aortic valve is grossly normal. There is no aortic valve stenosis. There is a mild amount of aortic regurgitation. Tricuspid Valve The tricuspid valve is not well visualized, but is grossly normal. There is no tricuspid stenosis. There is a trace or physiologic amount of tricuspid regurgitation. Tricuspid regurgitation jet envelope not well defined to measure RV systolic pressure accurately. Pulmonic Valve The pulmonic valve is not well visualized. Great Vessels The aortic root is not well visualized but is probably normal size. The inferior vena cava was not visualized. Effusions There is no pericardial effusion. : DORIE KENNEDY > Dorie Kennedy
--- NOTE | 2018-03-28 19:52 | PDOC PROGRESS REPORT ---
Subjective Progress Note for:: 03/28/18 Subjective:: This morning patient off NG tube. Currently on ice chips but I am told he will be on soft diet. Patient seems to be doing better with gradual improvement. Pt is denying any chest arm or neck discomfort. Patient denying any PND, orthopnea. Patient denied any sustained palpitations, dizziness, syncope, near syncope. Patient denying any fever chills. Patient denying any other significant discomfort. Patient is maintaining sinus rhythm. Review of systems: Rest review of systems negative. Medications: Medications have been reviewed. Reason For Visit: SMALL BOWEL OBSTRUCTION Physical Exam Vital Signs: Temp Pulse Resp BP Pulse Ox 98.6 F 99 20 108/66 96 03/28/18 15:50 03/28/18 16:05 03/28/18 16:05 03/28/18 15:50 03/28/18 15:50 Intake & Output 03/27/18 03/28/18 03/29/18 06:59 06:59 06:59 Intake Total 2014 1372 Output Total 30 800 Balance -30 1215 1372 Weight 50 kg Exam: GENERAL: well-nourished and in no acute distress. Alert and oriented x3 HEAD: Atraumatic, normocephalic. EYES: Pupils equal round and reactive to light, extraocular movements intact, sclera anicteric, conjunctiva are normal. ENT: TMs normal, nares patent, oropharynx clear without exudates. Moist mucous membranes. No oral ulcerations or bleeding gums noted NECK: supple without lymphadenopathy. Trachea is central. No cervical or axillary lymphadenopathy noted. Carotids are 2+, JVD WNL LUNGS: Respiration seems nonlabored, no significant accessory muscle action noted. Breath sounds clear to auscultation bilaterally and equal noted. No wheezes rales or rhonchi noted. No significant dullness noted on percussion. CHEST: Palpation of the chest wall shows no significant chest wall tenderness. 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 ABDOMEN: Soft, no significant tenderness appreciated, normoactive bowel sounds. No guarding, no rebound. No rigidity noted . No masses appreciated. EXTREMITIES: Pedal pulses are 1-2+, no calf tenderness noted. No clubbing or cyanosis. negative pedal edema noted NEUROLOGICAL: Focused neurological exam showed no significant neurologic deficit. Normal speech, no focal weakness appreciated. PSYCH: Normal mood, normal affect. Judgment and insight within normal limits. SKIN: No significant ecchymosis, skin is noted to be warm. MUSCULOSKELETAL EXAM: No significant acute joint swelling noted. Results Laboratory Results: 03/28/18 06:02 03/28/18 06:02 03/28/18 03/28/18 06:02 06:02 WBC 8.8 RBC 4.58 Hgb 13.9 Hct 41.4 MCV 91 MCH 30.4 MCHC 33.6 RDW 14.5 H Plt Count 216 Sodium 139.1 Potassium 4.9 Chloride 104 Carbon Dioxide 26 Anion Gap 9 BUN 19 Creatinine 0.80 Est GFR ( Amer) > 60 Est GFR (Non-Af Amer) > 60 Glucose 76 Calcium 8.4 Impressions: KUB X-Ray 03/26/18 18:35 IMPRESSION: Nonobstructive bowel gas pattern. Moderate stool burden. Abdomen/Pelvis CT 03/26/18 21:15 IMPRESSION: 1. DISTAL SMALL BOWEL OBSTRUCTION. NO OBVIOUS ETIOLOGY OR FOCAL TRANSITION POINT DEMONSTRATED. SMALL BOWEL WALL THICKENING. SMALL AMOUNT OF FREE FLUID. 2. SMALL NONOBSTRUCTING CALYCEAL CALCULI IN BOTH KIDNEYS. SMALL CORTICAL CYSTS IN BOTH KIDNEYS. 3. NO OTHER SIGNIFICANT OR ACUTE FINDING IN THE ABDOMEN OR PELVIS ON CT SCAN WITH IV CONTRAST. Abdomen X-Ray 03/28/18 07:45 IMPRESSION: Nonspecific, nonobstructed bowel gas pattern. No acute findings. Assessment & Plan - Diagnosis (1) Bowel obstruction Qualifiers: Intestinal obstruction type: unspecified Intestinal obstruction extent: unspecified extent Qualified Code(s): K56.609 - Unspecified intestinal obstruction, unspecified as to partial versus complete obstruction Is this a current diagnosis for this admission?: Yes (2) Coronary artery disease Qualifiers: Coronary Disease-Associated Artery/Lesion type: [place] artery [place] vs. transplanted heart: [place] heart Associated angina: angina presence unspecified Qualified Code(s): I25.10 - Atherosclerotic heart disease of [place] coronary artery without angina pectoris Is this a current diagnosis for this admission?: Yes (3) Hypertension Qualifiers: Hypertension type: essential hypertension Qualified Code(s): I10 - Essential (primary) hypertension Is this a current diagnosis for this admission?: Yes (4) Hyperlipidemia Qualifiers: Hyperlipidemia type: unspecified Qualified Code(s): E78.5 - Hyperlipidemia , unspecified Is this a current diagnosis for this admission?: Yes (5) Paroxysmal atrial fibrillation Is this a current diagnosis for this admission?: Yes - Notes Notes: Patient being placed on metoprolol succinate 25 mg p.o. twice daily. Continue other home medications. Bowel obstruction: Patient being managed by surgical list. Patient has shown improvement in bowel obstruction. Currently on ice chips and will be allowed soft food. Coronary artery disease: Currently is stable. Have started patient on p.o. beta -kayla but switch patient to metoprolol succinate which is slower and longer acting. Hypertension: Blood pressure under reasonable control. Hyperlipidemia: Recommend restarting all home medicines once able to to take p.o. on consistent basis.. History of paroxysmal atrial fibrillation: Currently not on chronic anticoagulation. 2D echo results reviewed with the patient's and patient's . It shows LVEF to be relatively well-preserved. With mild to moderate mitral regurgitation and minimal aortic incompetence.. At this point patient is maintaining sinus rhythm. Patient has a history of it. 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 Patient currently just visiting here on vacation. - Time Time with patient: Greater than 35 minutes - CODE STATUS was discussed, patient remains full code. Surrogate decision-maker unchanged. Multiple medical problems were addressed. More than 50% of the time spent coordinating care, discussing management plans with involved caregivers. Management plans discussed with involved personnels. Medical decision making was of moderate to high complexity, patient's has multiple comorbidities. Medications reviewed and adjusted accordingly: Yes
--- NOTE | 2018-03-28 23:14 | PDOC PROGRESS REPORT ---
Subjective Progress Note for:: 03/28/18 Subjective:: This is a 67-year-old male with a small bowel obstruction. He is passing flatus and having small bowel movements. The patient reports that the enema did not have very good results yesterday. The patient denies chest pain, shortness of breath, nausea, vomiting, abdominal pain, dizziness, orthostasis, headache. The patient does report joint pain which is chronic. Reason For Visit: SMALL BOWEL OBSTRUCTION Physical Exam Vital Signs: Temp Pulse Resp BP Pulse Ox 98.5 F 86 18 126/86 H 96 03/28/18 19:54 03/28/18 19:54 03/28/18 19:54 03/28/18 19:54 03/28/18 19:54 Intake & Output 03/27/18 03/28/18 03/29/18 06:59 06:59 06:59 Intake Total 2014 1372 Output Total 30 800 Balance -30 1215 1372 Weight 50 kg General appearance: PRESENT: no acute distress. ABSENT: obese Head exam: PRESENT: atraumatic, normocephalic Eye exam: PRESENT: EOMI, PERRLA. ABSENT: scleral icterus Mouth exam: PRESENT: neck supple Teeth exam: ABSENT: poor dentation Neck exam: ABSENT: lymphadenopathy, meningismus, tenderness, thyromegaly, tracheal deviation Respiratory exam: PRESENT: clear to auscultation stanley, unlabored. ABSENT: rhonchi, wheezes Cardiovascular exam: PRESENT: RRR Pulses: PRESENT: normal radial pulses Vascular exam: PRESENT: normal capillary refill. ABSENT: pallor GI/Abdominal exam: PRESENT: soft. ABSENT: distended, tenderness Rectal exam: PRESENT: deferred Extremities exam: ABSENT: clubbing, pedal edema Neurological exam: PRESENT: alert, awake, oriented to person, oriented to place , oriented to time, oriented to situation, CN II-XII grossly intact. ABSENT: motor sensory deficit Psychiatric exam: ABSENT: agitated, anxious, depressed Focused psych exam: ABSENT: delusional Skin exam: ABSENT: cyanosis, erythema, jaundice Results Laboratory Results: 03/28/18 06:02 03/28/18 06:02 03/28/18 03/28/18 06:02 06:02 WBC 8.8 RBC 4.58 Hgb 13.9 Hct 41.4 MCV 91 MCH 30.4 MCHC 33.6 RDW 14.5 H Plt Count 216 Sodium 139.1 Potassium 4.9 Chloride 104 Carbon Dioxide 26 Anion Gap 9 BUN 19 Creatinine 0.80 Est GFR ( Amer) > 60 Est GFR (Non-Af Amer) > 60 Glucose 76 Calcium 8.4 Impressions: KUB X-Ray 03/26/18 18:35 IMPRESSION: Nonobstructive bowel gas pattern. Moderate stool burden. Abdomen/Pelvis CT 03/26/18 21:15 IMPRESSION: 1. DISTAL SMALL BOWEL OBSTRUCTION. NO OBVIOUS ETIOLOGY OR FOCAL TRANSITION POINT DEMONSTRATED. SMALL BOWEL WALL THICKENING. SMALL AMOUNT OF FREE FLUID. 2. SMALL NONOBSTRUCTING CALYCEAL CALCULI IN BOTH KIDNEYS. SMALL CORTICAL CYSTS IN BOTH KIDNEYS. 3. NO OTHER SIGNIFICANT OR ACUTE FINDING IN THE ABDOMEN OR PELVIS ON CT SCAN WITH IV CONTRAST. Abdomen X-Ray 03/28/18 07:45 IMPRESSION: Nonspecific, nonobstructed bowel gas pattern. No acute findings. Assessment & Plan - Diagnosis (1) Bowel obstruction Qualifiers: Intestinal obstruction type: unspecified Intestinal obstruction extent: unspecified extent Qualified Code(s): K56.609 - Unspecified intestinal obstruction, unspecified as to partial versus complete obstruction Is this a current diagnosis for this admission?: Yes - Plan Summary Plan Summary: This is a 67-year-old male admitted with a small bowel obstruction. His obstruction appears to be resolving. Patient is passing flatus and having small bowel movements. I will add MiraLAX to help assist with bowel movements. The patient's most recent x-ray shows movement of stool through the colon and air in the distal colon. I will advance the patient's diet today. If the patient has significant improvement, plan for discharge soon.
[2018-03-29] MEDS: NORMAL SALINE 1000 ML 1,000 ML IV PRN (03:17)
[2018-03-29] MEDS: METOPROLOL SUCCINATE 25 MG TAB.SR.24H PO SCH (10:01)
[2018-03-29] MEDS: TRAMADOL HCL 50 MG TABLET PO PRN (10:01)
[2018-03-29] MEDS: TAMSULOSIN HCL 0.4 MG CAP.SR.24H PO SCH (10:02)
[2018-03-29] MEDS: ENOXAPARIN SODIUM INJ 40 MG/0.4 ML DISP.SYRIN SUBCUT SCH (10:02)
--- NOTE | 2018-03-29 10:38 | PDOC PROGRESS REPORT ---
Subjective Progress Note for:: 03/28/18 Subjective:: LISA CHASE is a 67 year old male with prior history of intestinal perforation status post colostomy and subsequent colostomy takedown over 20 years ago presented with 2-3 day history of crampy lower abdominal pain especially on the right side. CT Abd/Pelvis showed possible small bowel obstruction, currently being medically managed by surgery. Hospitalist consulted for blood pressure management. Cardiology was also consulted for this patient due to a history of paroxismal AFIB. Reason For Visit: SMALL BOWEL OBSTRUCTION Physical Exam Vital Signs: Temp Pulse Resp BP Pulse Ox 98.3 F 56 L 20 115/68 98 03/29/18 08:05 03/29/18 08:05 03/29/18 08:05 03/29/18 08:05 03/29/18 04:00 Intake & Output 03/28/18 03/29/18 03/30/18 06:59 06:59 06:59 Intake Total 2014 2372 Output Total 800 Balance 1215 2372 Weight 50 kg 50 kg General appearance: PRESENT: no acute distress, well-developed Eye exam: PRESENT: conjunctiva pink, PERRLA Mouth exam: PRESENT: moist Neck exam: PRESENT: full ROM Respiratory exam: PRESENT: clear to auscultation stanley, symmetrical, unlabored Cardiovascular exam: PRESENT: +S1, +S2 Pulses: PRESENT: normal radial pulses, normal dorsalis pedis pul Vascular exam: PRESENT: normal capillary refill GI/Abdominal exam: PRESENT: normal bowel sounds, soft. ABSENT: tenderness Rectal exam: PRESENT: deferred Extremities exam: PRESENT: full ROM Musculoskeletal exam: PRESENT: tenderness - lower back. ABSENT: deformity Neurological exam: PRESENT: alert, awake, oriented to person, oriented to place , oriented to time, oriented to situation Psychiatric exam: PRESENT: appropriate affect Skin exam: PRESENT: dry, intact, normal color, warm Results Laboratory Results: 03/28/18 06:02 03/28/18 06:02 Impressions: KUB X-Ray 03/26/18 18:35 IMPRESSION: Nonobstructive bowel gas pattern. Moderate stool burden. Abdomen/Pelvis CT 03/26/18 21:15 IMPRESSION: 1. DISTAL SMALL BOWEL OBSTRUCTION. NO OBVIOUS ETIOLOGY OR FOCAL TRANSITION POINT DEMONSTRATED. SMALL BOWEL WALL THICKENING. SMALL AMOUNT OF FREE FLUID. 2. SMALL NONOBSTRUCTING CALYCEAL CALCULI IN BOTH KIDNEYS. SMALL CORTICAL CYSTS IN BOTH KIDNEYS. 3. NO OTHER SIGNIFICANT OR ACUTE FINDING IN THE ABDOMEN OR PELVIS ON CT SCAN WITH IV CONTRAST. Abdomen X-Ray 03/28/18 07:45 IMPRESSION: Nonspecific, nonobstructed bowel gas pattern. No acute findings. Status: Imported from PACS Assessment & Plan - Diagnosis (1) Hypertension Qualifiers: Hypertension type: essential hypertension Qualified Code(s): I10 - Essential (primary) hypertension Is this a current diagnosis for this admission?: Yes Plan: History of HTN On home dose Metoprolol Blood pressure has been well controlled (2) Coronary artery disease Qualifiers: Coronary Disease-Associated Artery/Lesion type: [place] artery [place] vs. transplanted heart: [place] heart Associated angina: angina presence unspecified Qualified Code(s): I25.10 - Atherosclerotic heart disease of [place] coronary artery without angina pectoris Is this a current diagnosis for this admission?: Yes Plan: History of CAD, [place], stent x 4 Holding aspirin for possible surgery May continue statin therapy (3) Hyperlipidemia Qualifiers: Hyperlipidemia type: unspecified Qualified Code(s): E78.5 - Hyperlipidemia , unspecified Is this a current diagnosis for this admission?: Yes Plan: History of HLD Tolerating PO - clear liquids Can restart statin (4) Chronic back pain Qualifiers: Back pain location: low back pain Is this a current diagnosis for this admission?: Yes Plan: s/p spinal fusion followed by [place] pain service resumed PO diet (clears) today, ok for PO medication Continue home dose tramadol add lidocaine TP NOW and PRN (5) Afib Qualifiers: Atrial fibrillation type: paroxysmal Qualified Code(s): I48.0 - Paroxysmal atrial fibrillation Is this a current diagnosis for this admission?: Yes Plan: Remote history of paroxysmal AFIB NSR while inpatient at [facility] Initially placed on IV lopressor while patient was NPO Now tolerating PO diet, able to resume home dose metoprolol - Time Time Spent with patient: 15-24 minutes Medications reviewed and adjusted accordingly: Yes Anticipated discharge: Home - Inpatient Certification Based on my medical assessment, after consideration of the patient's comorbidities, presenting symptoms, or acuity I expect that the services needed warrant INPATIENT care.: Yes I certify that my determination is in accordance with my understanding of Medicare's requirements for reasonable and necessary INPATIENT services [42 CFR 412.3e].: Yes Medical Necessity: Risk of Complication if Not Cared For in Hospital - Plan Summary Plan Summary: SBO MANAGEMENT PER SURGERY. PATIENT TOLERATING HOME MEDICATIONS. NORMOTENSIVE. CONTINUE CURRENT TREATMENT PLAN.
--- NOTE | 2018-03-29 11:52 | PDOC PROGRESS REPORT ---
Subjective Progress Note for:: 03/29/18 Subjective:: Feels well. Still some very mild abdominal discomfort but having bowel movements. Tolerating a liquid diet well. Reason For Visit: SMALL BOWEL OBSTRUCTION Physical Exam Vital Signs: Temp Pulse Resp BP Pulse Ox 98.3 F 56 L 20 115/68 98 03/29/18 08:05 03/29/18 08:05 03/29/18 08:05 03/29/18 08:05 03/29/18 04:00 Intake & Output 03/28/18 03/29/18 03/30/18 06:59 06:59 06:59 Intake Total 20142 Output Total 800 Balance 1215 2372 Weight 50 kg 50 kg General appearance: PRESENT: no acute distress, cooperative Respiratory exam: PRESENT: clear to auscultation stanley Cardiovascular exam: PRESENT: RRR GI/Abdominal exam: PRESENT: other - Soft, nondistended, nontender to palpation. Extremities exam: PRESENT: other - No swelling and no tenderness. Results Laboratory Results: 03/28/18 06:02 03/28/18 06:02 Impressions: KUB X-Ray 03/26/18 18:35 IMPRESSION: Nonobstructive bowel gas pattern. Moderate stool burden. Abdomen/Pelvis CT 03/26/18 21:15 IMPRESSION: 1. DISTAL SMALL BOWEL OBSTRUCTION. NO OBVIOUS ETIOLOGY OR FOCAL TRANSITION POINT DEMONSTRATED. SMALL BOWEL WALL THICKENING. SMALL AMOUNT OF FREE FLUID. 2. SMALL NONOBSTRUCTING CALYCEAL CALCULI IN BOTH KIDNEYS. SMALL CORTICAL CYSTS IN BOTH KIDNEYS. 3. NO OTHER SIGNIFICANT OR ACUTE FINDING IN THE ABDOMEN OR PELVIS ON CT SCAN WITH IV CONTRAST. Abdomen X-Ray 03/28/18 07:45 IMPRESSION: Nonspecific, nonobstructed bowel gas pattern. No acute findings. Assessment & Plan - Diagnosis (1) Small bowel obstruction Is this a current diagnosis for this admission?: Yes Plan: Improving. Will try solid diet. If tolerated we will plan to discharge patient home.
--- NOTE | 2018-03-29 16:50 | PDOC PROGRESS REPORT ---
Subjective Progress Note for:: 03/29/18 Subjective:: LISA CHASE is a 67 year old male with prior history of intestinal perforation status post colostomy and subsequent colostomy takedown over 20 years ago presented with 2-3 day history of crampy lower abdominal pain especially on the right side. CT Abd/Pelvis showed possible small bowel obstruction, currently being medically managed by surgery. Hospitalist consulted for blood pressure management. Cardiology was also consulted for this patient due to a history of paroxismal AFIB. The patient was seen this afternoon on rounds, he is sitting up in bed on room air. He had just finished eating his lunch. Today is the first day the patient has been allowed solid food. So far, he denies N/V or abdominal pain. Reason For Visit: SMALL BOWEL OBSTRUCTION Physical Exam Vital Signs: Temp Pulse Resp BP Pulse Ox 98.1 F 61 16 106/71 96 03/29/18 15:08 03/29/18 15:08 03/29/18 15:08 03/29/18 15:08 03/29/18 15:08 Intake & Output 03/28/18 03/29/18 03/30/18 06:59 06:59 06:59 Intake Total 2014 2372 1470 Output Total 800 Balance 1215 2372 1470 Weight 50 kg 50 kg General appearance: PRESENT: no acute distress, well-developed, well-nourished Head exam: PRESENT: atraumatic, normocephalic Eye exam: PRESENT: conjunctiva pink, EOMI, PERRLA. ABSENT: scleral icterus Ear exam: PRESENT: normal external ear exam Mouth exam: PRESENT: moist, tongue midline Neck exam: ABSENT: carotid bruit, JVD, lymphadenopathy, thyromegaly Respiratory exam: PRESENT: clear to auscultation stanley. ABSENT: rales, rhonchi, wheezes Cardiovascular exam: PRESENT: RRR. ABSENT: diastolic murmur, rubs, systolic murmur Pulses: PRESENT: normal dorsalis pedis pul Vascular exam: PRESENT: normal capillary refill GI/Abdominal exam: PRESENT: normal bowel sounds, soft, tenderness - MILD TTP. ABSENT: distended, guarding, mass, organolmegaly, rebound Rectal exam: PRESENT: deferred Extremities exam: PRESENT: full ROM. ABSENT: calf tenderness, clubbing, pedal edema Neurological exam: PRESENT: alert, awake, oriented to person, oriented to place , oriented to time, oriented to situation Psychiatric exam: PRESENT: appropriate affect, normal mood Skin exam: PRESENT: dry, intact, warm. ABSENT: cyanosis, rash Results Laboratory Results: 03/28/18 06:02 03/28/18 06:02 Impressions: KUB X-Ray 03/26/18 18:35 IMPRESSION: Nonobstructive bowel gas pattern. Moderate stool burden. Abdomen/Pelvis CT 03/26/18 21:15 IMPRESSION: 1. DISTAL SMALL BOWEL OBSTRUCTION. NO OBVIOUS ETIOLOGY OR FOCAL TRANSITION POINT DEMONSTRATED. SMALL BOWEL WALL THICKENING. SMALL AMOUNT OF FREE FLUID. 2. SMALL NONOBSTRUCTING CALYCEAL CALCULI IN BOTH KIDNEYS. SMALL CORTICAL CYSTS IN BOTH KIDNEYS. 3. NO OTHER SIGNIFICANT OR ACUTE FINDING IN THE ABDOMEN OR PELVIS ON CT SCAN WITH IV CONTRAST. Abdomen X-Ray 03/28/18 07:45 IMPRESSION: Nonspecific, nonobstructed bowel gas pattern. No acute findings. Status: Imported from PACS Assessment & Plan - Diagnosis (1) Hypertension Qualifiers: Hypertension type: essential hypertension Qualified Code(s): I10 - Essential (primary) hypertension Is this a current diagnosis for this admission?: Yes Plan: History of HTN On home dose Metoprolol Blood pressure has been well controlled (2) Coronary artery disease Qualifiers: Coronary Disease-Associated Artery/Lesion type: [place] artery [place] vs. transplanted heart: [place] heart Associated angina: angina presence unspecified Qualified Code(s): I25.10 - Atherosclerotic heart disease of [place] coronary artery without angina pectoris Is this a current diagnosis for this admission?: Yes Plan: History of CAD, [place], stent x 4 Holding aspirin for possible surgery May continue statin therapy (3) Hyperlipidemia Qualifiers: Hyperlipidemia type: unspecified Qualified Code(s): E78.5 - Hyperlipidemia , unspecified Is this a current diagnosis for this admission?: Yes Plan: History of HLD Tolerating PO - clear liquids Can restart statin (4) Chronic back pain Qualifiers: Back pain location: low back pain Is this a current diagnosis for this admission?: Yes Plan: s/p spinal fusion followed by [place] pain service resumed PO diet (clears) today, ok for PO medication Continue home dose tramadol add lidocaine TP NOW and PRN (5) Afib Qualifiers: Atrial fibrillation type: paroxysmal Qualified Code(s): I48.0 - Paroxysmal atrial fibrillation Is this a current diagnosis for this admission?: Yes Plan: Remote history of paroxysmal AFIB NSR while inpatient at [facility] Initially placed on IV lopressor while patient was NPO Now tolerating PO diet, able to resume home dose metoprolol (6) Bowel obstruction Qualifiers: Intestinal obstruction type: unspecified Intestinal obstruction extent: unspecified extent Qualified Code(s): K56.609 - Unspecified intestinal obstruction, unspecified as to partial versus complete obstruction Is this a current diagnosis for this admission?: Yes Plan: management per surgery - Time Time Spent with patient: 15-24 minutes Medications reviewed and adjusted accordingly: Yes Anticipated discharge: Home Within: within 48 hours - Inpatient Certification Based on my medical assessment, after consideration of the patient's comorbidities, presenting symptoms, or acuity I expect that the services needed warrant INPATIENT care.: Yes I certify that my determination is in accordance with my understanding of Medicare's requirements for reasonable and necessary INPATIENT services [42 CFR 412.3e].: Yes Medical Necessity: Risk of Complication if Not Cared For in Hospital - Plan Summary Plan Summary: OBSERVE FOR GI SYMPTOMOLOGY FOLLOWING SOLID FOOD INTAKE. IF ABLE TO TOLERATE, LIKELY DISCHARGE HOME. NO MEDICAL ISSUES FROM HOSPITALIST PERSPECTIVE THAT WOULD HOLD UP DISCHARGE
--- NOTE | 2018-03-29 17:57 | PDOC PROGRESS REPORT ---
Subjective Progress Note for:: 03/29/18 Subjective:: Feels much better. Tolerating a solid diet well. Feels almost normal. No abdominal pain. Having bowel movements. Reason For Visit: SMALL BOWEL OBSTRUCTION Physical Exam Vital Signs: Temp Pulse Resp BP Pulse Ox 98.1 F 61 16 106/71 96 03/29/18 15:08 03/29/18 15:08 03/29/18 15:08 03/29/18 15:08 03/29/18 15:08 Intake & Output 03/28/18 03/29/18 03/30/18 06:59 06:59 06:59 Intake Total 2014 2372 1470 Output Total 800 Balance 1215 2372 1470 Weight 50 kg 50 kg General appearance: PRESENT: no acute distress, cooperative GI/Abdominal exam: PRESENT: other - Soft, nondistended, nontender to palpation. Results Laboratory Results: 03/28/18 06:02 03/28/18 06:02 Impressions: KUB X-Ray 03/26/18 18:35 IMPRESSION: Nonobstructive bowel gas pattern. Moderate stool burden. Abdomen/Pelvis CT 03/26/18 21:15 IMPRESSION: 1. DISTAL SMALL BOWEL OBSTRUCTION. NO OBVIOUS ETIOLOGY OR FOCAL TRANSITION POINT DEMONSTRATED. SMALL BOWEL WALL THICKENING. SMALL AMOUNT OF FREE FLUID. 2. SMALL NONOBSTRUCTING CALYCEAL CALCULI IN BOTH KIDNEYS. SMALL CORTICAL CYSTS IN BOTH KIDNEYS. 3. NO OTHER SIGNIFICANT OR ACUTE FINDING IN THE ABDOMEN OR PELVIS ON CT SCAN WITH IV CONTRAST. Abdomen X-Ray 03/28/18 07:45 IMPRESSION: Nonspecific, nonobstructed bowel gas pattern. No acute findings. Assessment & Plan - Diagnosis (1) Small bowel obstruction Is this a current diagnosis for this admission?: Yes Plan: Resolved. Discharge patient home. I will have the patient take Colace at home. I have advised him to follow-up with his primary care physician after discharge and also have an outpatient colonoscopy. I have asked him to stay well hydrated especially when he is traveling. He is to call for any problems.
--- NOTE | 2018-03-29 18:20 | DISCHARGE SUMMARY E ---
Discharge Summary NAME: LISA CHASE : 1950 AGE: 67Y ADMITTED: 03/26/2018 DISCHARGED: 03/29/2018 FINAL DIAGNOSES: 1. SMALL BOWEL OBSTRUCTION. 2. PAROXYSMAL ATRIAL FIBRILLATION. 3. HYPERTENSION. 4. POSSIBLE CONSTIPATION. HOSPITAL COURSE: The patient was managed conservatively with NG tube decompression and IV fluids. The NG tube was putting out fairly minimal amounts and it got displaced and was not reinserted. The patient began to have bowel movements and his abdominal x-rays demonstrated improvement. He had enemas done, which demonstrated minimal results. He was placed on MiraLax, from which he had excellent response. He was tolerating a diet well at the time of discharge. He was free of abdominal pain. He did go into episodes of atrial fib, spontaneously converting to normal sinus. He has a long history of this disease process. The patient is now being discharged to home in good condition. He will follow up with his primary care physician upon arrival back at home. He is encouraged to stay active and to stay well hydrated, especially when he is traveling. He may resume all of his home medications. He is to also take Colace 1 p.o. twice daily. I did recommend that he undergo a colonoscopy when he does return home. He should also follow with his primary care physician about a referral to Cardiology for his paroxysmal atrial fibrillation. He is to call us for any problems such as recurrent nausea, vomiting, or abdominal pain. DICTATING PHYSICIAN: STEPHANIE BRITO M.D. [id number] PHY#: [id number] ID: [id number] JOB#: [id number] ACCT: [id number] cc:Radha ALICEA M.D. >
[2018-03-29 18:41] VITALS: BP 128/56
--- NOTE | 2018-03-29 19:35 | PDOC PROGRESS REPORT ---
Subjective Progress Note for:: 03/29/18 Subjective:: Seen on morning rounds. Patient noted to be tolerating p.o. meds and p.o. food. He is expected to be discharged later on today. Patient seems to be doing better with significant improvement. Pt is denying any chest arm or neck discomfort. Patient denying any PND, orthopnea. Patient denied any sustained palpitations, dizziness, syncope, near syncope. Patient denying any fever chills. Patient denying any other significant discomfort. Patient is maintaining sinus rhythm. Review of systems: Rest review of systems negative. Medications: Medications have been reviewed. Reason For Visit: SMALL BOWEL OBSTRUCTION Physical Exam Vital Signs: Temp Pulse Resp BP Pulse Ox 98.1 F 61 16 128/56 H 96 03/29/18 18:38 03/29/18 18:38 03/29/18 18:38 03/29/18 18:38 03/29/18 18:38 Intake & Output 03/28/18 03/29/18 03/30/18 06:59 06:59 06:59 Intake Total 2014 2372 2250 Output Total 800 Balance 1215 2372 2250 Weight 50 kg 50 kg Exam: GENERAL: well-nourished and in no acute distress. Alert and oriented x3 HEAD: Atraumatic, normocephalic. EYES: Pupils equal round and reactive to light, extraocular movements intact, sclera anicteric, conjunctiva are normal. ENT: TMs normal, nares patent, oropharynx clear without exudates. Moist mucous membranes. No oral ulcerations or bleeding gums noted NECK: supple without lymphadenopathy. Trachea is central. No cervical or axillary lymphadenopathy noted. Carotids are 2+, JVD WNL LUNGS: Respiration seems nonlabored, no significant accessory muscle action noted. Breath sounds clear to auscultation bilaterally and equal noted. No wheezes rales or rhonchi noted. No significant dullness noted on percussion. CHEST: Palpation of the chest wall shows no significant chest wall tenderness. 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 ABDOMEN: Soft, no significant tenderness appreciated, normoactive bowel sounds. No guarding, no rebound. No rigidity noted . No masses appreciated. EXTREMITIES: Pedal pulses are 1-2+, no calf tenderness noted. No clubbing or cyanosis. negative pedal edema noted NEUROLOGICAL: Focused neurological exam showed no significant neurologic deficit. Normal speech, no focal weakness appreciated. PSYCH: Normal mood, normal affect. Judgment and insight within normal limits. SKIN: No significant ecchymosis, skin is noted to be warm. MUSCULOSKELETAL EXAM: No significant acute joint swelling noted. Results Laboratory Results: 03/28/18 06:02 03/28/18 06:02 EKG Comments: Telemetry shows sinus rhythm without any sustained tachycardia or bradycardia. Impressions: KUB X-Ray 03/26/18 18:35 IMPRESSION: Nonobstructive bowel gas pattern. Moderate stool burden. Abdomen/Pelvis CT 03/26/18 21:15 IMPRESSION: 1. DISTAL SMALL BOWEL OBSTRUCTION. NO OBVIOUS ETIOLOGY OR FOCAL TRANSITION POINT DEMONSTRATED. SMALL BOWEL WALL THICKENING. SMALL AMOUNT OF FREE FLUID. 2. SMALL NONOBSTRUCTING CALYCEAL CALCULI IN BOTH KIDNEYS. SMALL CORTICAL CYSTS IN BOTH KIDNEYS. 3. NO OTHER SIGNIFICANT OR ACUTE FINDING IN THE ABDOMEN OR PELVIS ON CT SCAN WITH IV CONTRAST. Abdomen X-Ray 03/28/18 07:45 IMPRESSION: Nonspecific, nonobstructed bowel gas pattern. No acute findings. Assessment & Plan - Diagnosis (1) Bowel obstruction Qualifiers: Intestinal obstruction type: unspecified Intestinal obstruction extent: unspecified extent Qualified Code(s): K56.609 - Unspecified intestinal obstruction, unspecified as to partial versus complete obstruction Is this a current diagnosis for this admission?: Yes (2) Coronary artery disease Qualifiers: Coronary Disease-Associated Artery/Lesion type: [place] artery [place] vs. transplanted heart: [place] heart Associated angina: angina presence unspecified Qualified Code(s): I25.10 - Atherosclerotic heart disease of [place] coronary artery without angina pectoris Is this a current diagnosis for this admission?: Yes (3) Hypertension Qualifiers: Hypertension type: essential hypertension Qualified Code(s): I10 - Essential (primary) hypertension Is this a current diagnosis for this admission?: Yes (4) Hyperlipidemia Qualifiers: Hyperlipidemia type: unspecified Qualified Code(s): E78.5 - Hyperlipidemia , unspecified Is this a current diagnosis for this admission?: Yes (5) Paroxysmal atrial fibrillation Is this a current diagnosis for this admission?: Yes - Notes Notes: Bowel obstruction: Patient being managed by surgical list. This has resolved. Coronary artery disease: Currently is stable. Patient can be discharged on his home medication but switched metoprolol tartrate to metoprolol succinate. Hypertension: Blood pressure under reasonable control. Hyperlipidemia: Continue home statin therapy. History of paroxysmal atrial fibrillation: Currently not on chronic anticoagulation. 2D echo results were reviewed with patient's and patient. Their questions were answered. At this point patient is maintaining sinus rhythm. Patient has a history of it. Chronic anticoagulation issue is probably best to left to patient's primary care galley hand. Patient currently just visiting here on vacation. - Time Time with patient: 15-25 minutes - CODE STATUS was discussed, patient remains full code. Surrogate decision-maker unchanged. Multiple medical problems were addressed. More than 50% of the time spent coordinating care, discussing management plans with involved caregivers. Management plans discussed with involved personnels. Medical decision making was of moderate to high complexity , patient's has multiple comorbidities. Medications reviewed and adjusted accordingly: Yes
[2018-03-29] MEDS ORDERED: ATORVASTATIN CALCIUM 80 MG TABLET PO SCH (22:00)
== END 2018-03-29 18:50 | disposition home or self-care (01) | DRG 390 ==
LOC: ER 17:22 → EH 23:47 → 2N 03-27 15:45
PROVIDERS: ADMIT Surgery; ATTEND Surgery
DX: K56.600 Partial intestinal obstruction, unspecified as to cause (principal); I48.0 Paroxysmal atrial fibrillation; K58.9 Irritable bowel syndrome, unspecified; I25.10 Atherosclerotic heart disease of native coronary artery without angina pectoris; I10 Essential (primary) hypertension; E78.5 Hyperlipidemia, unspecified; M06.9 Rheumatoid arthritis, unspecified; G89.29 Other chronic pain; M54.9 Dorsalgia, unspecified; Z79.82 Long term (current) use of aspirin; Z79.899 Other long term (current) drug therapy; Z90.49 Acquired absence of other specified parts of digestive tract
CPT/HCPCS: 36415; 74018; 74019; 74177; 80048; 80053; 81001; 82272; 83690; 85025; 85027; 93005; 93010; 93306; 96361; 96374; 96375; 96376; 99291; J1200; J1650; J2270; J2405; J2765; J3490; J7030; S0164